=== PATIENT | male | born 1990 | race Caucasian/White ===

== ENCOUNTER 2017-06-17 10:31 | Emergency (ER) | payer OTHER, BC ==
[2017-06-17] MEDS: HYDROCODONE/APAP (10/325) TAB PO (11:19)
[2017-06-17] MEDS ORDERED: LIDOCAINE 1% (MDV) 20 ML INJ (11:24)
[2017-06-17 12:01] LABS: ADD UMIC YES; UR ASCORBIC ACID NEGATIVE (NEGATIVE); UR BILIRUBIN (Dip) NEGATIVE (NEGATIVE); UR BLOOD (Dip) NEGATIVE (NEGATIVE); UR CLARITY CLEAR (CLEAR); UR COLOR YELLOW (YELLOW); UR GLUCOSE (Dip) NEGATIVE (NEGATIVE); UR KETONES (Dip) NEGATIVE (NEGATIVE); UR LEUKOCYTE ESTERASE (Dip) NEGATIVE Leu/ul (NEGATIVE); UR MUCUS FEW /HPF (NONE SEEN); UR NITRITE (Dip) NEGATIVE (NEGATIVE); UR RBC 1 /HPF (0-5); UR SPECIFIC GRAVITY (Dip) 1.034 (1.003-1.030); UR TOTAL PROTEIN (Dip) 1+ mg/dl (NEGATIVE); UR UROBILINOGEN (Dip) 1+ mg/dL (NEGATIVE); UR WBC 1 /HPF (0-5)
== END 2017-06-17 12:43 | disposition left against medical advice (07) ==
LOC: FTE 10:31
DX: S92.912B Unspecified fracture of left toe(s), initial encounter for open fracture (principal); W01.10XA Fall on same level from slipping, tripping and stumbling with subsequent striking against unspecified object, initial encounter; Y92.9 Unspecified place or not applicable
CPT/HCPCS: 81001; 99283-25

== ENCOUNTER 2017-06-17 15:07 | Inpatient (IN) | payer OTHER ==
[~2017-06-17 15:07] MED LIST: CEFAZOLIN 1 GM INJ; LIDOCAINE 2% (SDV) 5 ML INJ
[2017-06-17] MEDS: HYDROmorphONE 1 MG/ML SYG IV ×2 (15:52→23:29)
[2017-06-17] MEDS: ONDANSETRON 4 MG INJ IV ×2 (15:52→20:20)
[2017-06-17 16:24] LABS: ADD MAN DIFF? NO
[2017-06-17 16:26] LABS: ABNORMAL IP MESSAGE 1; BASOPHIL # 0.1 10^3/ul (0.0-0.1); BASOPHILS % 1.1 % (0.0-2.0); EOSINOPHILS # 0.3 10^3/ul (0.0-0.5); EOSINOPHILS % 4.5 % (0.0-7.0); HEMOGLOBIN 14.1 g/dl (14.0-18.0); LYMPHOCYTES # 1.9 10^3/ul (0.8-2.9); LYMPHOCYTES % 34.5 % (15.0-51.0); MEAN CORPUSCULAR HEMOGLOBIN 30.3 pg (29.0-33.0); MEAN CORPUSCULAR HGB CONC 34.4 g/dl (32.0-37.0); MEAN CORPUSCULAR VOLUME 88.2 fl (82.0-101.0); MEAN PLATELET VOLUME 11.3 fl (7.4-10.4); MONOCYTE # 0.5 10^3/ul (0.3-0.9); MONOCYTES % 8.1 % (0.0-11.0); NEUTROPHIL # 2.9 10^3/ul (1.6-7.5); NEUTROPHILS % 51.6 % (39.0-77.0); PLATELET COUNT 208 10^3/UL (140-415); POSITIVE DIFF @See below; RED BLOOD COUNT 4.65 10^6/ul (4.70-6.10); RED CELL DISTRIBUTION WIDTH 12.8 % (11.5-14.5)
[2017-06-17 16:26] LABS: WHITE BLOOD COUNT 5.6 10^3/ul (4.8-10.8)
[2017-06-17 16:36] LABS: INR 1.18; PROTIME 15.2 Sec (11.9-14.9); PT RATIO 1.2
[2017-06-17 16:37] LABS: PARTIAL THROMBOPLASTIN TIME 31.7 Sec (25.0-35.0)
[2017-06-17 16:42] LABS: ANION GAP 13 (8-16); BLOOD UREA NITROGEN 16 mg/dl (7-20); CALCIUM 9.3 mg/dl (8.4-10.2); CARBON DIOXIDE 32 mmol/L (21-31); CHLORIDE 100 mmol/L (97-110); CREATININE 1.29 mg/dl (0.61-1.24); GLUCOSE 86 mg/dl (70-220); POTASSIUM 4.1 mmol/L (3.5-5.1); SODIUM 141 mmol/L (135-144)
[2017-06-17 16:54] LABS: TROPONIN-I < 0.012 ng/ml (0.00-0.12)
[2017-06-17] MEDS ORDERED: ONDANSETRON 4 MG INJ IV ×2 (17:00→20:00)
[2017-06-17] MEDS ORDERED: ACETAMINOPHEN 325 MG TAB PO ×2 (17:00→17:30)
[2017-06-17] MEDS: CEFAZOLIN 2 GM/50 ML (PMX) 50 ML IVPB ×2 (17:06→21:56)
[2017-06-17] MEDS ORDERED: NACL 0.9% 3 ML SYG IV (17:30)
[2017-06-17] MEDS ORDERED: HYDROCODONE/APAP (5/325) TAB PO ×2 (17:30)
[2017-06-17] MEDS ORDERED: IBUPROFEN 600 MG TAB PO (17:30)
[2017-06-17] MEDS ORDERED: morphine 2 MG INJ IV (17:30)
[2017-06-17] MEDS ORDERED: CEFAZOLIN 2 GM/50 ML (PMX) 50 ML IVPB (18:00)
[2017-06-17] MEDS: POLYMYXIN/BACITRACIN 1L IRRIG (18:00)
[2017-06-17] MEDS ORDERED: SODIUM CL BACTERIOSTATIC 30 ML INJ (18:46)
[2017-06-17] MEDS ORDERED: POLYMYXIN B 500000 UNIT INJ (18:46)
[2017-06-17] MEDS ORDERED: ROCURONIUM 50 MG INJ ×2 (19:13→19:14)
[2017-06-17] MEDS ORDERED: PROPOFOL 20 ML (19:13)
[2017-06-17] MEDS ORDERED: ONDANSETRON 4 MG INJ (19:14)
[2017-06-17] MEDS ORDERED: DEXAMETHASONE 4 MG/ML 1 ML INJ (19:14)
[2017-06-17] MEDS: ROPIVACAINE 0.5 % 30 ML VIAL (19:31)
[2017-06-17] MEDS ORDERED: SUGAMMADEX SODIUM 200 MG/2 ML VIAL IV (19:33)
[2017-06-17] MEDS: NEOMYC/POLYMYX/BACIT 30 GM OINT (19:33)
[2017-06-17] MEDS ORDERED: MIDAZOLAM 1 MG/ML 2 ML INJ IV (20:00)
[2017-06-17] MEDS ORDERED: LABETALOL HCL 20MG INJ IV (20:00)
[2017-06-17] MEDS ORDERED: METOCLOPRAMIDE 10 MG INJ IV (20:00)
[2017-06-17] MEDS ORDERED: KETOROLAC 30 MG INJ IV (20:00)
[2017-06-17] MEDS ORDERED: CEFAZOLIN 1 GM INJ IV (20:00)
[2017-06-17] MEDS ORDERED: OXYCODONE/ACETAMINOPHEN (5/325) TAB PO ×2 (20:00)
[2017-06-17] MEDS ORDERED: HYDROmorphONE (0.2 MG/ML) 10ML SYG IV ×3 (20:00→20:01)
[2017-06-17] MEDS ORDERED: oxyCODONE 5 MG TAB PO (20:00)
[2017-06-17] MEDS ORDERED: FENTAnyl 50 MCG/ML VIAL IV ×3 (20:00)
[2017-06-17] MEDS ORDERED: DIPHENHYDRAMINE 50 MG INJ IV (20:00)
[2017-06-17] MEDS ORDERED: EPHEDrine SULFATE 50 MG/5 ML SYG IV (20:00)
[2017-06-17] MEDS ORDERED: DIPHENHYDRAMINE 25 MG CAP PO (20:00)
[2017-06-17] MEDS ORDERED: hydrALAzine 20 MG INJ IV (20:00)
[2017-06-17] MEDS ORDERED: ALBUTEROL 0.083% (NEB) 2.5 MG/3 ML AMP HHN (20:00)
[2017-06-17] MEDS ORDERED: MEPERIDINE 25 MG INJ (20:01)
[2017-06-17] MEDS: HYDROmorphONE (0.2 MG/ML) 10ML SYG IV (20:12)
[2017-06-17] MEDS: MEPERIDINE 25 MG INJ IV (20:16)
[2017-06-17] MEDS: DIPHTH/TET TOX 0.5 ML INJ (ADULT) IM* (22:23)
[2017-06-17] MEDS: TETANUS IMMUNE GLOB 250 UNIT SYG IM (23:00)
[2017-06-18] MEDS: HYDROmorphONE 1 MG/ML SYG IV ×3 (04:37→13:17)
[2017-06-18 05:03] LABS: ADD MAN DIFF? NO
[2017-06-18 05:08] LABS: BASOPHILS % 0.5 % (0.0-2.0); HEMOGLOBIN 14.6 g/dl (14.0-18.0); LYMPHOCYTES # 0.8 10^3/ul (0.8-2.9); LYMPHOCYTES % 8.7 % (15.0-51.0); MEAN CORPUSCULAR HEMOGLOBIN 30.5 pg (29.0-33.0); MEAN CORPUSCULAR HGB CONC 34.8 g/dl (32.0-37.0); MEAN CORPUSCULAR VOLUME 87.7 fl (82.0-101.0); MEAN PLATELET VOLUME 11.4 fl (7.4-10.4); MONOCYTE # 0.3 10^3/ul (0.3-0.9); NEUTROPHIL # 7.6 10^3/ul (1.6-7.5); NEUTROPHILS % 87.6 % (39.0-77.0); PLATELET COUNT 236 10^3/UL (140-415); RED BLOOD COUNT 4.79 10^6/ul (4.70-6.10); RED CELL DISTRIBUTION WIDTH 12.1 % (11.5-14.5)
[2017-06-18 05:08] LABS: WHITE BLOOD COUNT 8.7 10^3/ul (4.8-10.8)
[2017-06-18] MEDS: CEFAZOLIN 2 GM/50 ML (PMX) 50 ML IVPB ×2 (05:12→13:33)
[2017-06-18 05:52] LABS: ANION GAP 12 (8-16); BLOOD UREA NITROGEN 16 mg/dl (7-20); CALCIUM 9.2 mg/dl (8.4-10.2); CARBON DIOXIDE 29 mmol/L (21-31); CHLORIDE 101 mmol/L (97-110); CREATININE 1.38 mg/dl (0.61-1.24); GLUCOSE 114 mg/dl (70-220); MAGNESIUM 1.8 mg/dl (1.7-2.5); PHOSPHORUS 3.7 mg/dl (2.5-4.9); POTASSIUM 4.4 mmol/L (3.5-5.1); SODIUM 138 mmol/L (135-144)
[2017-06-18] MEDS ORDERED: NON-FORMULARY/PATIENT OWN MED (Amphet Asp-Amphet-D-Amphet (Adderall) 20 MG) PO (09:00)
[2017-06-18 10:05] LABS: ADD UMIC NO; UR ASCORBIC ACID NEGATIVE (NEGATIVE); UR BILIRUBIN (Dip) NEGATIVE (NEGATIVE); UR BLOOD (Dip) NEGATIVE (NEGATIVE); UR CLARITY CLEAR (CLEAR); UR COLOR STRAW (YELLOW); UR GLUCOSE (Dip) 1+ mg/dL (NEGATIVE); UR KETONES (Dip) NEGATIVE (NEGATIVE); UR LEUKOCYTE ESTERASE (Dip) NEGATIVE Leu/ul (NEGATIVE); UR NITRITE (Dip) NEGATIVE (NEGATIVE); UR SPECIFIC GRAVITY (Dip) 1.011 (1.003-1.030); UR TOTAL PROTEIN (Dip) NEGATIVE (NEGATIVE); UR UROBILINOGEN (Dip) 1+ mg/dL (NEGATIVE)
[2017-06-18] MEDS ORDERED: MAGNESIUM HYDROXIDE 30ML CUP PO (11:30)
[2017-06-18] MEDS: BISACODYL (EC) 5 MG TAB PO (11:39)
[2017-06-18 12:19] LABS: HEMOGLOBIN A1C 4.9 % (0-5.9)
[2017-06-18 12:21] LABS: CREATININE,URINE RANDOM 63.61 mg/dl (20-370)
[2017-06-18 12:21] LABS: SODIUM,URINE RANDOM 100 mmol/L (30-90)
[2017-06-18 14:55] LABS: ANION GAP 12 (8-16); BLOOD UREA NITROGEN 15 mg/dl (7-20); CALCIUM 9.3 mg/dl (8.4-10.2); CARBON DIOXIDE 31 mmol/L (21-31); CHLORIDE 99 mmol/L (97-110); CREATININE 1.22 mg/dl (0.61-1.24); GLUCOSE 131 mg/dl (70-220); POTASSIUM 3.8 mmol/L (3.5-5.1); SODIUM 138 mmol/L (135-144)
== END 2017-06-18 16:30 | disposition home or self-care (01) | DRG 505 ==
LOC: E/R 15:07 → MS1 16:37
PROC: 0QSR04Z Reposition Left Toe Phalanx with Internal Fixation Device, Open Approach (ICD-10-PCS; principal; 2017-06-17 18:06)
PROC: 0HQRXZZ Repair Toe Nail, External Approach (ICD-10-PCS; 2017-06-17 18:06)
DX: S92.422B Displaced fracture of distal phalanx of left great toe, initial encounter for open fracture (principal); S91.202A Unspecified open wound of left great toe with damage to nail, initial encounter; X58.XXXA Exposure to other specified factors, initial encounter; Y92.009 Unspecified place in unspecified non-institutional (private) residence as the place of occurrence of the external cause
CPT/HCPCS: 71045; 73630-LT; 80048; 81003; 82540; 83036; 83735; 84100; 84155; 84300; 84484; 85025; 85610; 85730; 90389; 90714; 93005; 96374; 96375; 97162; 99285-25